=== PATIENT | female | born 1985 | race Caucasian/White ===

== ENCOUNTER 2022-07-12 18:11 | Emergency (ER) | payer MEDICAID, SELFPAY ==
[2022-07-12 18:21] VITALS: BP 129/85; PULSE 76; RESP 18; TEMP 36.8; O2SAT 99; BMI 17.2
--- NOTE | 2022-07-12 18:39 | ED_ITS ---
HPI - Animal Bite General Date Seen: 07/12/22 Chief Complaint: Animal Bite Stated Complaint: Dog Bite Time Seen by Provider: 07/12/22 18:12 Source: patient and family Mode of arrival: ambulatory Limitations: no limitations History of Present Illness HPI narrative: Patient was walking in the [facility], when a [place] came up, unprovoked and bit her on the right lateral part of her leg, through her appy past. They went home and rinsed it off with hydrogen peroxide, and then came to the emergency room. They were unable to find the road supervisor of the dog, it appeared to be a straight, they called the police, but the dogs whereabouts are unknown. She the patient does not have immunization for rabies, no history of any other immunosuppressive conditions, she does take medications for back pain and anxiety MD complaint: animal bite Onset (ago): minute(s) (60) Animal: dog Description of animal: unknown animal and immunizations unknown Mechanism: bite Location: other Location - Extremities: Right: thigh Pain description: sharp Severity: moderate Context: unprovoked Associated symptoms: bleeding Treatments prior to arrival: wound dressing(s) and other (H2O2) Related Data Patient tetanus UTD: Yes Home Medications Medication Instructions Recorded Confirmed albuterol sulfate 90 mcg/actuation 1 - 2 inh inhalation Q6H PRN 07/12/22 07/12/22 aerosol inhaler (Ventolin HFA) clonazepam 0.5 mg tablet 1 mg PO HS 07/12/22 07/12/22 escitalopram oxalate 20 mg tablet 20 mg PO HS 07/12/22 07/12/22 fluticasone propionate 100 1 inh inhalation DAILY 07/12/22 07/12/22 mcg/actuation blister powder for inhalation (Flovent Diskus) gabapentin 100 mg capsule 100 mg PO BID 07/12/22 07/12/22 hydroxyzine pamoate 25 mg capsule 25 mg PO BID 07/12/22 07/12/22 lisdexamfetamine 50 mg capsule 50 mg PO DAILY 07/12/22 07/12/22 (Vyvanse) meloxicam 7.5 mg tablet 7.5 mg PO DAILY 07/12/22 07/12/22 Previous Rx's Medication Instructions Recorded amoxicillin 875 mg-potassium 1 tab PO BID #20 tabs 07/12/22 clavulanate 125 mg tablet Allergies Allergy/AdvReac Type Severity Reaction Status Date / Time Sulfa (Sulfonamide Allergy Verified 07/12/22 18:20 Antibiotics) Review of Systems Status of ROS: Reports: 10 or more systems reviewed and unremarkable except as noted in History and below [facility] Social History Smoking Status: Current every day smoker What tobacco products do you use: cigarettes Do you use any of these nicotine containing products: Vaping Products Second hand tobacco smoke exposure: No How often do you have a drink containing alcohol: monthly or less How many standard drinks containing alcohol do you have on a typical day: 1 or 2 How often do you have six or more drinks on one occasion: Never AUDIT-C Alcohol total score: 1 Non-prescribed substance use: marijuana (any form) service: No Exam Narrative: Exam Narrative: Patient is seen in room 5 she has no apparent distress, there is clearly a bite on her right lateral thigh, this is a break in the skin, there is a small laceration of approximately 5 mm, and some bruising noted around it, but no other bleeding, she is able to walk normally bearing weight on her leg, normal distal pulses, normal sensation. I suggest rabies prophylaxis with vaccine, given the fact we do not know the status of the animal, and that rabies is universally fatal. Rabies immunoglobulin is infiltrated in the wound and also into the unilateral buttock, vaccine is also given. On the contralateral side I recommend she follow up, bacitracin to the wound, antibiotics for prophylaxis. Const: Vital Signs, click to edit/add: Vital Signs - 24 hr 07/12/22 18:21 Temperature 98.3 F Pulse Rate [Pulse Oximeter] 76 Respiratory Rate 18 Blood Pressure [Le ft Upper Arm] 129/85 Pulse Oximetry 99 Oxygen Delivery Me thod Room Air Documenting provider has reviewed patient's vital signs: yes Course Vital Signs Vital signs: Initial Vital Signs Temperature 98.3 F 07/12/22 18:21 Temperature Source Temporal Artery Scan 07/12/22 18:21 Pulse Rate 76 07/12/22 18:21 Pulse Rhythm 07/12/22 18:21 Respiratory Rate 18 07/12/22 18:21 Blood Pressure 129/85 07/12/22 18:21 Blood Pressure Mean 99 07/12/22 18:21 Blood Pressure Position Left Lateral 07/12/22 18:21 Pulse Oximetry 99 07/12/22 18:21 Oxygen Delivery Method 07/12/22 18:21 Vital Signs Temperature 98.3 F 07/12/22 18:21 Pulse Rate 76 07/12/22 18:21 Respiratory Rate 18 07/12/22 18:21 Blood Pressure 129/85 07/12/22 18:21 Pulse Oximetry 99 07/12/22 18:21 Oxygen Delivery Method 07/12/22 18:21 Temperature 98.3 F 07/12/22 18:21 Pulse Rate 76 07/12/22 18:21 Respiratory Rate 18 07/12/22 18:21 Blood Pressure 129/85 07/12/22 18:21 Pulse Oximetry 99 07/12/22 18:21 Oxygen Delivery Method 07/12/22 18:21 MDM - Animal Bite MDM Narrative Medical decision making narrative: I discussed with her given the fact that this was unprovoked, from a dog, we were unable to quarantine the dog, I recommend rabies prophylaxis with both the immunoglobulin and vaccine here. We will give her a dose of ibuprofen, I will prophylax with antibiotics, given the small size of the wound will leave it open, we will also clean it and let will be applied, and she should be set up to get this series. Differential Diagnosis Differential diagnosis: Likely bite by animal, dog bite and rabies contact Medical Records Attestation: I reviewed the patient's medical records. Medical records narrative: The [facility] record is reviewed Discharge Plan Discharge Clinical Impression: Rabies contact, Dog bite Patient Disposition: Home w/ Parent or Adult Condition: Stable Instructions: Animal Bite (ED), Postexposure Prophylaxis (ED) Additional Instructions: Home rest use of antibiotics please finish these up, watch for signs of infection, bacitracin daily on to the wound, set up your injections for your rabies at days 3 7 and 14. He can do this at her clinic or at the hospital. Ice over the wound is helpful to you. Tylenol ibuprofen for the discomfort. Prescriptions: New amoxicillin-pot clavulanate 875-125 mg tablet 1 tab PO BID Qty: 20 0RF No Action albuterol sulfate [Ventolin HFA] 90 mcg/actuation HFA aerosol inhaler 1 - 2 inh INHALATION Q6H PRN Label Comments: INHALE 1 TO 2 PUFFS BY MOUTH EVERY 6 HOURS IF NEEDED FOR SHORTNESS OF BREATH OR WHEEZING. clonazepam 0.5 mg tablet 1 mg PO HS Label Comments: Take 1 Tablet By mouth daily at bedtime. escitalopram oxalate 20 mg tablet 20 mg PO HS Label Comments: Take 1 Tablet By mouth once daily at bedtime. Flovent Diskus 100 mcg/actuation blister with device 1 inh INHALATION DAILY Label Comments: Inhale 1 Puff by mouth two times daily. gabapentin 100 mg capsule 100 mg PO BID Label Comments: Take 1 Capsule (100 mg) by mouth two times daily. hydroxyzine pamoate 25 mg capsule 25 mg PO BID Label Comments: Take 1 Capsule By mouth 2 times per day if needed. Vyvanse 50 mg capsule 50 mg PO DAILY meloxicam 7.5 mg tablet 7.5 mg PO DAILY Label Comments: Take 1 Tablet (7.5 mg) by mouth once daily. Follow Up/Referrals: Provider,Not a Local [Primary Care Provider] - Stand [facility]one [facility]
[2022-07-12] MEDS: IBUPROFEN 200 MG TABLET 600 MG PO (19:01)
[2022-07-12] MEDS: RABIES IMMUNE GLOBULIN 150 UNIT/ML INJ 885 UNIT INFILTRATI (19:20)
[2022-07-12] MEDS: AMOXICILLIN/CLAVULANATE 875 mg/125 mg TABLET PO (19:24)
--- NOTE | 2022-07-12 19:52 | ED.NURSE ---
300 IU Rabies immune globulin infiltrated into right thigh laceration. Remaining 285 IU Rabies immune globulin given IM in right thigh. Rabies vaccine administered into left upper arm. [facility] notified of dog attack and have contacted patient.
== END 2022-07-12 20:16 | disposition home or self-care (01) ==
PROVIDERS: Emergency Provider Family Medicine
DX: S81.851A Open bite, right lower leg, initial encounter (principal); W54.0XXA Bitten by dog, initial encounter; Z20.3 Contact with and (suspected) exposure to rabies
CPT/HCPCS: 90377; 90471; 90675; 99283; A9270